=== PATIENT | male | born 1940 | race Caucasian/White ===

== ENCOUNTER 2019-07-02 13:34 | Emergency (ER) | payer OTHER, MEDICARE, BC ==
[2019-07-02 13:57] VITALS: BP 108/67; PULSE 60
--- NOTE | 2019-07-02 15:00 | EDM.PDOC ---
ED HPI GENERAL MEDICAL PROBLEM - General Chief Complaint: Fever Stated Complaint: FEVER Time Seen by Provider: 07/02/19 14:02 Source of Information: Reports: Patient, RN Notes Reviewed, Other ([facility]) - History of Present Illness INITIAL COMMENTS - FREE TEXT/NARRATIVE: 79 yr old male referred here from [facility]. He had hand surgery for Dupuytrens contracture 3 days ago, [facility] as an outpatient. He had onset of low energy last evening, went to be about "90 minutes early". This AM he continued to "weak and tired". He went to [facility], Ua and CXR reported to be normal, had elevated WBC of about 16,000 and reported to have fever of 100.6 at the clinic. Referred here for further evaluation. He has not been coughing or short of breath. No abd pain, nausea or vomiting. - Related Data Allergies Allergy/AdvReac Type Severity Reaction Status Date / Time ibuprofen Allergy Severe Hives Verified 07/02/19 13:46 Home Meds: Home Meds atorvaSTATin [Lipitor] 20 mg PO DAILY 07/02/19 [History] Past Medical History Other HEENT History: Ptosis of eye Cardiovascular History: Reports: High Cholesterol Other Cardiovascular History: Bradycardia Other Gastrointestinal History: colitis - Past Surgical History GI Surgical History: Reports: Cholecystectomy Social & Family History - Tobacco Use Smoking Status *Q: Never Smoker - Caffeine Use Caffeine Use: Reports: None - Recreational Drug Use Recreational Drug Use: No ED ROS GENERAL - Review of Systems Review Of Systems: See Below Constitutional: Reports: Fever HEENT: Denies: Rhinitis, Sinus Problem, Throat Pain Respiratory: Denies: Shortness of Breath, Cough Cardiovascular: Denies: Chest Pain GI/Abdominal: Denies: Abdominal Pain, Diarrhea, Nausea, Vomiting Musculoskeletal: Reports: No Symptoms Skin: Reports: No Symptoms Neurological: Reports: No Symptoms ED EXAM, GENERAL - Physical Exam Exam: See Below General Appearance: Alert, No Apparent Distress Eye Exam: Bilateral Eye: PERRL Nose: Normal Inspection Head: Atraumatic Neck: Supple Respiratory/Chest: No Respiratory Distress, Lungs Clear, Normal Breath Sounds. No: Rhonchi, Wheezing Cardiovascular: Regular Rate, Rhythm GI/Abdominal: Soft, Non-Tender. No: Guarding Back Exam: No: CVA Tenderness (L), CVA Tenderness (R) Extremities: Normal Inspection, Normal Range of Motion. No: Pedal Edema, Leg Pain Neurological: Alert, Oriented, No Motor/Sensory Deficits Skin Exam: Warm, Dry, Normal Color, No Rash Course - Vital Signs Last Recorded V/S: Last Vital Signs Temp 98.7 F 07/02/19 13:50 Pulse 60 07/02/19 13:50 Resp 13 07/02/19 13:50 BP 108/67 07/02/19 13:50 Pulse Ox 100 07/02/19 13:50 - Orders/Labs/Meds Orders: Active Orders 24 hr Category Date Time Status CORONAVIRUS COVID-19 PCR PHL Stat Lab 07/02/19 15:56 Ordered CULTURE BLOOD [BC] Stat Lab 07/02/19 14:45 Received CULTURE WOUND [RM] Stat Lab 07/02/19 14:40 Received Labs: Laboratory Tests 07/02/19 Range/Units 14:45 C-Reactive Protein 17.0 H* (<1.0) mg/dL Meds: Medications Discontinued Medications Generic Name Dose Route Start Last Admin Trade Name Mesfin PRN Reason Stop Dose Admin Ceftriaxone Sodium 1 gm/ 100 mls @ 200 mls/hr 07/02/19 15:50 07/02/19 16:00 Sodium Chloride IV 07/02/19 16:19 200 mls/hr ONETIME ONE Administration - Re-Assessments/Exams Free Text/Narrative Re-Assessment/Exam: 07/02/19 15:47 Labs reviewed from clinic and also Radiologist report stating there are no acute findings. CRP has come back at 17. Blood culture times 1 drawn because of reported prior fever. His hand wound looked good with no visible infection but I have had his nurse swab that with a moistened sterile swab for wound culture. will recheck his temp at this time, will give rocephin 1 gram IV, will do a covid screen and than discharge home with return precautions. Departure - Departure Time of Disposition: 16:49 Disposition: Home, Self-Care 01 Condition: Fair Clinical Impression: Fever - Discharge Information Instructions: Fever, Adult, [id number] Referrals: Mukesh Nagy Jr, MD [Primary Care Provider] - Forms: ED Department Discharge Additional Instructions: Rest, isolate at home until you hear results of the covid screen. Results should become available this evening as the hospital lab can now do the test. Drink plenty of water to maintain hydration. You have been given rocephin 1 gram IV. You will be called if blood culture becomes positive. Tylenol for fever greater than 101. Return to ED for difficulty breathing or if symptoms otherwise worsening in a serious way. Sepsis Event Note - Evaluation Sepsis Screening Result: No Definite Risk - Focused Exam Vital Signs: Vital Signs Temp Pulse Resp BP Pulse Ox 07/02/19 13:50 98.7 F 60 13 108/67 100 Date Exam was Performed: 07/02/19 Time Exam was Performed: 17:05 - My Orders Last 24 Hours: My Active Orders 07/02/19 14:40 CULTURE WOUND [RM] Stat 07/02/19 14:45 CULTURE BLOOD [BC] Stat 07/02/19 15:56 CORONAVIRUS COVID-19 PCR PHL Stat - Assessment/Plan Last 24 Hours: My Active Orders 07/02/19 14:40 CULTURE WOUND [RM] Stat 07/02/19 14:45 CULTURE BLOOD [BC] Stat 07/02/19 15:56 CORONAVIRUS COVID-19 PCR PHL Stat
[2019-07-02] MEDS ORDERED: cefTRIAXone 1 GM in Sodium Chloride 0.9% 100 ML IV ONE (15:50)
== END 2019-07-02 17:15 | disposition home or self-care (01) ==
LOC: JD.ED 13:34
DX: R50.9 Fever, unspecified (principal); E78.00 Pure hypercholesterolemia, unspecified; Z88.8 Allergy status to other drugs, medicaments and biological substances; Z79.899 Other long term (current) drug therapy; Z90.89 Acquired absence of other organs; Z20.828 Contact with and (suspected) exposure to other viral communicable diseases
CPT/HCPCS: 36415; 86140; 87040; 87070; 87077; 87186; 87635; 96365; 99284; J0696; J7050; 99283; U0002

== ENCOUNTER 2020-03-27 10:17 | Emergency (ER) | payer BC, MEDICARE, OTHER ==
[2020-03-27] MEDS ORDERED: Sodium Chloride 0.9% 10 ML Syringe FLUSH PRN (11:12)
--- NOTE | 2020-03-27 11:29 | EDM.PDOC ---
ED HPI GENERAL MEDICAL PROBLEM - General Chief Complaint: Respiratory Problem Stated Complaint: SENT FROM [facility] Time Seen by Provider: 03/27/20 11:06 Source of Information: Reports: Patient, Old Records (AL records), RN Notes Reviewed (Vital signs: Heart rate 67 bpm, temperature is 98.7 F, respiratory rate 18 breaths/min, blood pressure is 117/70, O2 sats 95% on room air.), Significant Other (spouse) History Limitations: Reports: No Limitations - History of Present Illness INITIAL COMMENTS - FREE TEXT/NARRATIVE: Patient is an 80-year-old male who presents to the ED for the evaluation of his possible dehydration. Patient apparently was sent from the [facility] clinic in [place]. He notes a 1 week history of extreme fatigue where he just wants to sleep all the time, loss of appetite and a dry cough. He notes the cough is been present for the last few weeks however it seems to not be getting much better, he states that he "just does not feel well". His is also characterizing chills so much so that he shakes but he is not had a fever, and he remains afebrile at the time of triage. He has no pain or complaints. He does have a history of colitis and states he has not been having increased stools or liquid stools however he has been noting maybe some black-colored tinge to his stools. He denies any shortness of breath, chest pain, nausea/vomiting/diarrhea. He did get his first COVID-19 vaccine roughly a month ago and is scheduled to get his second dose on April 06, 2020. The patient's states that she has been traveling for the last week she is not been home much with them, so she cannot attest to his fatigue and weight loss. - Related Data Allergies Allergy/AdvReac Type Severity Reaction Status Date / Time ibuprofen Allergy Intermediate Hives Verified 03/27/20 12:39 Home Meds: Home Meds atorvaSTATin [Lipitor] 20 mg PO DAILY 07/02/19 [History] Aspirin [Aspirin EC] 81 mg PO DAILY 03/27/20 [History] Colestipol HCl 1 gm PO DAILY 03/27/20 [History] Fish Oil/Crane-3 Fatty Acids [Fish Oil 1,000 MG] 1 each PO DAILY 03/27/20 [History] Multivitamin with Minerals [Multivitamins with Minerals] 1 each PO DAILY 03/27/20 [History] dexAMETHasone [Decadron] 6 mg PO BID 5 Days #10 tablet 03/27/20 [Rx] Past Medical History Other HEENT History: Ptosis of eye Cardiovascular History: Reports: High Cholesterol, Pacemaker Other Cardiovascular History: Bradycardia Gastrointestinal History: Reports: Chronic Diarrhea Other Gastrointestinal History: colitis Genitourinary History: Reports: BPH, Chronic Renal Insuffiency Neurological History: Reports: Neuropathy, Diabetic Endocrine/Metabolic History: Reports: Diabetes, Type II - Past Surgical History GI Surgical History: Reports: Cholecystectomy Social & Family History - Tobacco Use Tobacco Use Status *Q: Never Tobacco User - Caffeine Use Caffeine Use: Reports: Coffee, Tea - Recreational Drug Use Recreational Drug Use: No ED ROS GENERAL - Review of Systems Review Of Systems: Comprehensive ROS is negative, except as noted in HPI. ED EXAM, GENERAL - Physical Exam Exam: See Below Exam Limited By: No Limitations (Pt is hard of hearing) General Appearance: Alert, WD/WN, No Apparent Distress Respiratory/Chest: No Respiratory Distress, Lungs Clear, Normal Breath Sounds, No Accessory Muscle Use, Chest Non-Tender Cardiovascular: Normal Peripheral Pulses, Regular Rate, Rhythm, No Edema Peripheral Pulses: 2+: Radial (L), Radial (R) Extremities: Normal Inspection, Normal Capillary Refill Neurological: Alert, Oriented, Normal Cognition, No Motor/Sensory Deficits Psychiatric: Normal Affect, Normal Mood Skin Exam: Warm, Dry, Intact, Normal Color, No Rash #1 Interpretation EKG Date: 03/27/20 Time: 11:31 Rhythm: NSR Rate (Beats/Min): 63 (Atrial paced complexes at 63 bpm) [place]: LAD-Left [place] Deviation (-15 ) P-Wave: Present QRS: Normal ST-T: Normal QT: Normal Comparison: NA - No Prior EKG EKG Interpretation Comments: No obvious ischemia or acute ST changes noted, reviewed by myself and Dr. Goyal. Course - Vital Signs Last Recorded V/S: Last Vital Signs Temp 98.7 F 03/27/20 10:29 Pulse 60 03/27/20 14:45 Resp 24 H 03/27/20 14:45 BP 113/69 03/27/20 14:45 Pulse Ox 95 03/27/20 14:45 - Orders/Labs/Meds Orders: Active Orders 24 hr Category Date Time Status EKG Documentation Completion [RC] STAT Care 03/27/20 11:11 Ordered Peripheral IV Care [RC] . DIRECTED Care 03/27/20 11:12 Ordered Vital Signs [] Q15M Care 03/27/20 12:35 Ordered EPINEPHrine [Adrenalin] Med 03/27/20 12:35 Active 0.3 mg IM ONETIME PRN Famotidine [Pepcid] Med 03/27/20 12:35 Active 20 mg IVPUSH ONETIME PRN Sodium Chloride 0.9% [Saline Flush] Med 03/27/20 11:12 Active 10 ml FLUSH ASDIRECTED PRN Sodium Chloride 0.9% [Saline Flush] Med 03/27/20 12:45 Active 30 ml FLUSH ASDIRECTED diphenhydrAMINE [Benadryl] Med 03/27/20 12:35 Active 50 mg IVPUSH ONETIME PRN methylPREDNISolone Sod Succ [Solu-MEDROL] Med 03/27/20 12:35 Active 125 mg IVPUSH ONETIME PRN Peripheral IV Insertion Adult [OM.PC] Routine Oth 03/27/20 11:12 Ordered Medication Orders Diphenhydramine HCl (Benadryl) 50 mg IVPUSH ONETIME PRN PRN Reason: hypersensitivity reaction Epinephrine HCl (Adrenalin) 0.3 mg IM ONETIME PRN PRN Reason: hypersensitivity reaction Famotidine (Pepcid) 20 mg IVPUSH ONETIME PRN PRN Reason: hypersensitivity reaction Methylprednisolone Sodium Succinate (Solu-Medrol) 125 mg IVPUSH ONETIME PRN PRN Reason: hypersensitivity reaction Sodium Chloride (Saline Flush) 10 ml FLUSH ASDIRECTED PRN PRN Reason: Keep Vein Open Last Admin: 03/27/20 11:20 Dose: 10 ml Documented by: JUANA Sodium Chloride (Saline Flush) 30 ml FLUSH ASDIRECTED [facility] Labs: Laboratory Tests 03/27/20 03/27/20 03/27/20 Range/Units 10:50 10:50 10:50 WBC 10.66 H (4.23-9.07) K/mm3 RBC 3.91 L (4.63-6.08) M/mm3 Hgb 11.9 L (13.7-17.5) gm/dl Hct 35.0 L (40.1-51.0) % MCV 89.5 (79.0-92.2) fl MCH 30.4 (25.7-32.2) pg MCHC 34.0 (32.2-35.5) g/dl RDW Std Deviation 45.1 H (35.1-43.9) fL Plt Count 207 (163-337) K/mm3 MPV 10.7 (9.4-12.3) fl Neutrophils % (Manual) 53 (40-60) % Band Neutrophils % 0 (0-10) % Lymphocytes % (Manual) 44 H (20-40) % Atypical Lymphs % 0 % Monocytes % (Manual) 3 (2-10) % Eosinophils % (Manual) 0 L (0.8-7.0) % Basophils % (Manual) 0 L (0.2-1.2) Platelet Estimate Adequate RBC Morph Comment Normal PT 11.3 (9.7-12.0) SECONDS INR 1.06 APTT 33.1 H (21.7-31.4) SECONDS D-Dimer, Quantitative 1.14 H (0.19-0.50) mg/L Sodium (136-145) mEq/L Potassium (3.5-5.1) mEq/L Chloride (98-107) mEq/L Carbon Dioxide (21-32) mEq/L Anion Gap (5-15) BUN (7-18) mg/dL Creatinine (0.7-1.3) mg/dL Est Cr Clr Drug Dosing mL/min Estimated GFR (MDRD) (>60) mL/min BUN/Creatinine Ratio (14-18) Glucose (83-115) mg/dL Lactic Acid (0.4-2.0) mmol/L Calcium (8.5-10.1) mg/dL Magnesium (1.8-2.4) mg/dl Ferritin (26-388) ng/ml Total Bilirubin (0.2-1.0) mg/dL AST (15-37) U/L ALT (16-63) U/L Alkaline Phosphatase (46-116) U/L Troponin I (0.00-0.056) ng/mL C-Reactive Protein 16.7 H* (<1.0) mg/dL NT-Pro-B Natriuret Pep (0-450) pg/mL Total Protein (6.4-8.2) g/dl Albumin (3.4-5.0) g/dl Globulin gm/dL Albumin/Globulin Ratio (1-2) Urine Color (Yellow) Urine Appearance (Clear) Urine pH (5.0-8.0) Ur Specific [place] (1.005-1.030) Urine Protein (Negative) Urine Glucose (UA) (Negative) Urine Ketones (Negative) Urine Occult Blood (Negative) Urine Nitrite (Negative) Urine Bilirubin (Negative) Urine Urobilinogen (0.2-1.0) Ur Leukocyte Esterase (Negative) Urine RBC (0-5) /hpf Urine WBC (0-5) /hpf Ur Squamous Epith Cells (0-5) /hpf Urine Bacteria (FEW) /hpf Urine Mucus (FEW) /hpf Influenza Type A RNA (NEGATIVE) Influenza Type B RNA (NEGATIVE) SARS-CoV-2 RNA (AMANDA) (NEGATIVE) 03/27/20 03/27/20 03/27/20 Range/Units 10:50 10:50 10:50 WBC (4.23-9.07) K/mm3 RBC (4.63-6.08) M/mm3 Hgb (13.7-17.5) gm/dl Hct (40.1-51.0) % MCV (79.0-92.2) fl MCH (25.7-32.2) pg MCHC (32.2-35.5) g/dl RDW Std Deviation (35.1-43.9) fL Plt Count (163-337) K/mm3 MPV (9.4-12.3) fl Neutrophils % (Manual) (40-60) % Band Neutrophils % (0-10) % Lymphocytes % (Manual) (20-40) % Atypical Lymphs % % Monocytes % (Manual) (2-10) % Eosinophils % (Manual) (0.8-7.0) % Basophils % (Manual) (0.2-1.2) Platelet Estimate RBC Morph Comment PT (9.7-12.0) SECONDS INR APTT (21.7-31.4) SECONDS D-Dimer, Quantitative (0.19-0.50) mg/L Sodium 135 L (136-145) mEq/L Potassium 2.8 L (3.5-5.1) mEq/L Chloride 100 (98-107) mEq/L Carbon Dioxide 22 (21-32) mEq/L Anion Gap 15.8 H (5-15) BUN 22 H (7-18) mg/dL Creatinine 1.4 H (0.7-1.3) mg/dL Est Cr Clr Drug Dosing 40.04 mL/min Estimated GFR (MDRD) 49 (>60) mL/min BUN/Creatinine Ratio 15.7 (14-18) Glucose 120 H (83-115) mg/dL Lactic Acid (0.4-2.0) mmol/L Calcium 9.7 (8.5-10.1) mg/dL Magnesium 2.1 (1.8-2.4) mg/dl Ferritin 2027 H (26-388) ng/ml Total Bilirubin 0.9 (0.2-1.0) mg/dL AST 29 (15-37) U/L ALT 24 (16-63) U/L Alkaline Phosphatase 49 (46-116) U/L Troponin I < 0.017 (0.00-0.056) ng/mL C-Reactive Protein (<1.0) mg/dL NT-Pro-B Natriuret Pep 482 H (0-450) pg/mL Total Protein 7.0 (6.4-8.2) g/dl Albumin 2.8 L (3.4-5.0) g/dl Globulin 4.2 gm/dL Albumin/Globulin Ratio 0.7 L (1-2) Urine Color (Yellow) Urine Appearance (Clear) Urine pH (5.0-8.0) Ur Specific [place] (1.005-1.030) Urine Protein (Negative) Urine Glucose (UA) (Negative) Urine Ketones (Negative) Urine Occult Blood (Negative) Urine Nitrite (Negative) Urine Bilirubin (Negative) Urine Urobilinogen (0.2-1.0) Ur Leukocyte Esterase (Negative) Urine RBC (0-5) /hpf Urine WBC (0-5) /hpf Ur Squamous Epith Cells (0-5) /hpf Urine Bacteria (FEW) /hpf Urine Mucus (FEW) /hpf Influenza Type A RNA (NEGATIVE) Influenza Type B RNA (NEGATIVE) SARS-CoV-2 RNA (AMANDA) (NEGATIVE) 03/27/20 03/27/20 03/27/20 Range/Units 10:50 11:25 11:26 WBC (4.23-9.07) K/mm3 RBC (4.63-6.08) M/mm3 Hgb (13.7-17.5) gm/dl Hct (40.1-51.0) % MCV (79.0-92.2) fl MCH (25.7-32.2) pg MCHC (32.2-35.5) g/dl RDW Std Deviation (35.1-43.9) fL Plt Count (163-337) K/mm3 MPV (9.4-12.3) fl Neutrophils % (Manual) (40-60) % Band Neutrophils % (0-10) % Lymphocytes % (Manual) (20-40) % Atypical Lymphs % % Monocytes % (Manual) (2-10) % Eosinophils % (Manual) (0.8-7.0) % Basophils % (Manual) (0.2-1.2) Platelet Estimate RBC Morph Comment PT (9.7-12.0) SECONDS INR APTT (21.7-31.4) SECONDS D-Dimer, Quantitative (0.19-0.50) mg/L Sodium (136-145) mEq/L Potassium (3.5-5.1) mEq/L Chloride (98-107) mEq/L Carbon Dioxide (21-32) mEq/L Anion Gap (5-15) BUN (7-18) mg/dL Creatinine (0.7-1.3) mg/dL Est Cr Clr Drug Dosing mL/min Estimated GFR (MDRD) (>60) mL/min BUN/Creatinine Ratio (14-18) Glucose (83-115) mg/dL Lactic Acid 1.5 (0.4-2.0) mmol/L Calcium (8.5-10.1) mg/dL Magnesium (1.8-2.4) mg/dl Ferritin (26-388) ng/ml Total Bilirubin (0.2-1.0) mg/dL AST (15-37) U/L ALT (16-63) U/L Alkaline Phosphatase (46-116) U/L Troponin I (0.00-0.056) ng/mL C-Reactive Protein (<1.0) mg/dL NT-Pro-B Natriuret Pep (0-450) pg/mL Total Protein (6.4-8.2) g/dl Albumin (3.4-5.0) g/dl Globulin gm/dL Albumin/Globulin Ratio (1-2) Urine Color Yellow (Yellow) Urine Appearance Clear (Clear) Urine pH 7.0 (5.0-8.0) Ur Specific [place] 1.015 (1.005-1.030) Urine Protein Trace H (Negative) Urine Glucose (UA) Negative (Negative) Urine Ketones Negative (Negative) Urine Occult Blood Trace-lysed H (Negative) Urine Nitrite Negative (Negative) Urine Bilirubin Negative (Negative) Urine Urobilinogen 0.2 (0.2-1.0) Ur Leukocyte Esterase Negative (Negative) Urine RBC 5-10 H (0-5) /hpf Urine WBC 0-5 (0-5) /hpf Ur Squamous Epith Cells 0-5 (0-5) /hpf Urine Bacteria Few (FEW) /hpf Urine Mucus Not seen (FEW) /hpf Influenza Type A RNA Negative (NEGATIVE) Influenza Type B RNA Negative (NEGATIVE) SARS-CoV-2 RNA (AMANDA) Positive H (NEGATIVE) Meds: Medications Generic Name Dose Route Start Last Admin Trade Name Goq PRN Reason Stop Dose Admin Diphenhydramine HCl 50 mg 03/27/20 12:35 Benadryl IVPUSH ONETIME PRN hypersensitivity reaction Epinephrine HCl 0.3 mg 03/27/20 12:35 Adrenalin IM ONETIME PRN hypersensitivity reaction Famotidine 20 mg 03/27/20 12:35 Pepcid IVPUSH ONETIME PRN hypersensitivity reaction Methylprednisolone Sodium Succinate 125 mg 03/27/20 12:35 Solu-Medrol IVPUSH ONETIME PRN hypersensitivity reaction Sodium Chloride 10 ml 03/27/20 11:12 03/27/20 11:20 Saline Flush FLUSH 10 ml ASDIRECTED PRN Administration Keep Vein Open Sodium Chloride 30 ml 03/27/20 12:45 Saline Flush FLUSH ASDIRECTED POLO Discontinued Medications Generic Name Dose Route Start Last Admin Trade Name Goq PRN Reason Stop Dose Admin Dexamethasone 6 mg 03/27/20 12:35 03/27/20 13:02 Decadron IVPUSH 03/27/20 12:36 6 mg ONETIME ONE Administration Non-Formulary Medication 1,200 250 mls @ 250 mls/hr 03/27/20 12:35 03/27/20 13:03 mg/ Non-Formulary Medication IV 03/27/20 13:34 250 mls/hr 1,200 mg/ Sodium Chloride ONETIME ONE Administration Potassium Chloride 40 meq 03/27/20 12:17 03/27/20 12:29 Klor-Con M20 PO 03/27/20 12:18 40 meq ONETIME ONE Administration - Re-Assessments/Exams Free Text/Narrative Re-Assessment/Exam: 03/27/20 11:28 Patient presents to the ED for the evaluation of his ongoing fatigue for the last week. Due to his multitude of symptoms, we will get an array of labs, swab him for COVID-19, get a chest x-ray EKG. However with his report of black stools I am slightly concerned he may have been having an ongoing GI bleed, that could be causing some of his symptoms. 03/27/20 12:19 Patient's labs have started to result, white cell count is mildly elevated at 10.44 with 53% neutrophils and no bands, hemoglobin is 11.9 with hematocrit of 35. D-dimer is elevated at 1.14, CRP elevated at 16.7, ferritin elevated at 2026, patient does have renal insufficiency consistent with his CKD. Patient's COVID-19 screen did come back positive and his potassium is low at 2.8. At this time the patient would benefit from the possibility of outpatient bamlanivimab/Regeneron treatment. I will offer this to the patient at this time, his is present in the room, so I will ask her to leave at this time, go home and quarantine herself and get tested if she should develop symptoms. Regarding the patient's potassium we will give him 40 mEq oral, and repeat another 40 mEq oral prior to discharge. 03/27/20 12:36 I spoke with the patient and his to provide information about Regeneron Regeneron treatment. I offered them the "Patient and caregiver EUA fact sheet" to read and review. I stated that the drug has been approved by an emergency use authorization (EUA) process and has not been fully FDA reviewed or approved. The patient meets the EUA requirements. I discussed there are other potential treatment options that are currently not FDA approved to treat COVID-19. I did offer an opportunity to ask questions and all questions were answered. Patient and voiced understanding and agreed to proceed with the treatment. We will go ahead and give the patient 6 mg of IV dexamethasone as well, and plan to give this to him outpatient as well. Patient was reassessed at bedside when he was explained the Regeneron therapy, blood pressure is on the low side of normal, but his states that this is somewhat normal for him O2 sats are still 94 to 95%. Again to the patient's COVID-19 positive status I do not want to give him a lot of oral fluids I did go over what the should be giving the patient at home regarding nutrition, and she verbalized understanding. 03/27/20 13:58 The patient is nearing the end of his Regeneron IV therapy, he will be observed for a time period of 1 hour after this medication has been given, we will likely repeat the 40 mEq p.o. potassium dose before going, and discharged with general conservative recommendations. The patient's x-ray did come back concerning for the start of COVID-19 pneumonia. Departure - Departure Time of Disposition: 14:49 Disposition: Home, Self-Care 01 Condition: Good Clinical Impression: COVID-19, Hypokalemia - Discharge Information *PRESCRIPTION DRUG MONITORING PROGRAM REVIEWED*: No *COPY OF PRESCRIPTION DRUG MONITORING REPORT IN PATIENT ZULEIMA: No Prescriptions: dexAMETHasone [Decadron] 6 mg PO BID 5 Days #10 tablet Instructions: COVID-19 Frequently Asked Questions, 10 Things You Can Do to Manage Your COVID-19 Symptoms at Home - CDC, Hypokalemia Referrals: Rosario Wilder MD [Primary Care Provider] - Forms: ED Department Discharge Additional Instructions: You were seen in the ER today for ongoing and/or worsening respiratory symptoms. Your chest x-ray showed no signs of pneumonia at this time. Your oxygen levels were great at 95-96% on room air. You had a multitude of labs done at today's visit, and you were positive for COVID-19 at this time. This likely started roughly 1 week ago when you started feeling the symptoms of fatigue, and loss of appetite. Please try to increase your oral fluid intake, and eat multiple small meals throughout the day, to keep yourself healthy. You need to keep yourself nourished in order to fight off this disease. You can try a liquid diet like gatorade/powerade as well to get your electrolytes. You may also try protein shakes to help keep your nutrition up if you are not overly hungry. You may take 500 mg Tylenol every hours 6 hours for pain/fever relief. Do not exceed 4000 mg Tylenol in a 24-hour time span. However, running a fever is your body's natural response to illness, and it allows the body to develop antibodies to disease, we are recommending trying to limit the use of Tylenol as much as possible to allow your body's natural immune response. Recommend you obtain a pulse oximeter and monitor your oxygen levels at home, you should place the monitor on your finger, and sit in a calm, quiet position for a few minutes and then record the number that is on the screen. If this consistently below 90% on room air without movement, this would be cause for concern to come back to the hospital for further management of your COVID-19 disease. You will likely be contacted by the [facility], and please utilize them for all further COVID-19 guidance/questions/concerns. Sepsis Event Note (ED) - Evaluation Sepsis Screening Result: No Definite Risk - Focused Exam Vital Signs: Vital Signs Temp Pulse Resp BP Pulse Ox 03/27/20 14:45 60 24 H 113/69 95 03/27/20 14:30 60 20 117/72 94 L 03/27/20 14:15 60 20 124/108 H 90 L 03/27/20 14:00 60 20 111/67 97 03/27/20 13:45 60 18 105/66 95 03/27/20 13:30 63 18 107/71 95 03/27/20 13:15 60 20 106/65 95 03/27/20 13:00 60 20 108/69 95 03/27/20 12:45 65 20 116/70 97 03/27/20 12:30 60 20 103/56 L 94 L 03/27/20 12:00 61 20 100/66 94 L 03/27/20 11:45 60 20 98/64 94 L 03/27/20 10:29 98.7 F 67 18 117/70 95 - My Orders Last 24 Hours: My Active Orders 03/27/20 11:11 EKG Documentation Completion [RC] STAT 03/27/20 11:12 Peripheral IV Care [RC] . DIRECTED Sodium Chloride 0.9% [Saline Flush] 10 ml FLUSH ASDIRECTED PRN Peripheral IV Insertion Adult [OM.PC] Routine 03/27/20 12:35 Vital Signs [RC] Q15M EPINEPHrine [Adrenalin] 0.3 mg IM ONETIME PRN Famotidine [Pepcid] 20 mg IVPUSH ONETIME PRN diphenhydrAMINE [Benadryl] 50 mg IVPUSH ONETIME PRN methylPREDNISolone Sod Succ [Solu-MEDROL] 125 mg IVPUSH ONETIME PRN 03/27/20 12:45 Sodium Chloride 0.9% [Saline Flush] 30 ml FLUSH ASDIRECTED - Assessment/Plan Last 24 Hours: My Active Orders 03/27/20 11:11 EKG Documentation Completion [RC] STAT 03/27/20 11:12 Peripheral IV Care [RC] . DIRECTED Sodium Chloride 0.9% [Saline Flush] 10 ml FLUSH ASDIRECTED PRN Peripheral IV Insertion Adult [OM.PC] Routine 03/27/20 12:35 Vital Signs [RC] Q15M EPINEPHrine [Adrenalin] 0.3 mg IM ONETIME PRN Famotidine [Pepcid] 20 mg IVPUSH ONETIME PRN diphenhydrAMINE [Benadryl] 50 mg IVPUSH ONETIME PRN methylPREDNISolone Sod Succ [Solu-MEDROL] 125 mg IVPUSH ONETIME PRN 03/27/20 12:45 Sodium Chloride 0.9% [Saline Flush] 30 ml FLUSH ASDIRECTED
[2020-03-27 12:17] LABS: CORONAVIRUS COVID-19 NAA POSITIVE (NEGATIVE)
[2020-03-27] MEDS ORDERED: Potassium Chloride 20 MEQ Tab.ER PO ONE ×2 (12:17→14:49)
[2020-03-27] MEDS ORDERED: methylPREDNISolone Sodium Succinate 125 MG/2 ML SDV IVPUSH PRN (12:35)
[2020-03-27] MEDS ORDERED: EPINEPHrine 1 MG/ML SDV IM PRN (12:35)
[2020-03-27] MEDS ORDERED: Casirivimab 1,200 MG, Imdevimab 1,200 MG in Sodium Chloride 0.9% 230 ML IV ONE (12:35)
[2020-03-27] MEDS ORDERED: Famotidine 20 MG/2 ML SDV IVPUSH PRN (12:35)
[2020-03-27] MEDS ORDERED: Dexamethasone 10 MG/ML SDV IVPUSH ONE (12:35)
[2020-03-27] MEDS ORDERED: diphenhydrAMINE 50 MG/ML SDV IVPUSH PRN (12:35)
[2020-03-27] MEDS ORDERED: Sodium Chloride 0.9% 10 ML Syringe FLUSH SCH (12:45)
--- NOTE | 2020-03-27 14:01 | CR ---
Chest: Portable view of the chest was obtained. Comparison: Prior chest x-ray of 08/11/14. Heart size is felt to be within normal limits for portable technique. Tortuous thoracic aorta is seen. Pacemaker is noted. Patchy areas of increased density within the right upper lung are seen. Slight densities are noted within the left lower lung. Impression: 1. Patchy areas of increased density as noted above within both lungs. Please correlate if patient has COVID pneumonia. 2. Other findings as noted above which are stable. Diagnostic code #3
[2020-03-27 14:46] VITALS: PULSE 60
[2020-03-27 14:48] VITALS: BP 113/69
== END 2020-03-27 15:10 | disposition home or self-care (01) ==
LOC: JD.ED 10:17
DX: U07.1 COVID-19 (principal); E87.6 Hypokalemia; E78.00 Pure hypercholesterolemia, unspecified; E11.40 Type 2 diabetes mellitus with diabetic neuropathy, unspecified; E11.22 Type 2 diabetes mellitus with diabetic chronic kidney disease; N18.9 Chronic kidney disease, unspecified; Z79.82 Long term (current) use of aspirin; Z79.899 Other long term (current) drug therapy; Z88.6 Allergy status to analgesic agent; Z20.822 Contact with and (suspected) exposure to COVID-19
CPT/HCPCS: 0240U; 36415; 71045; 80053; 81001; 82728; 83605; 83735; 83880; 84484; 85007; 85027; 85379; 85610; 85730; 86140; 93005; 96374; 99284; A9270; J1100; J7050; M0243; Q0243; 93010

== ENCOUNTER 2020-03-29 11:39 | Emergency (ER) | payer OTHER ==
[2020-03-29 11:58] VITALS: BP 135/93; PULSE 63
--- NOTE | 2020-03-29 13:58 | CR ---
Chest: Portable view of the chest was obtained. Comparison: Prior chest x-ray of 03/27/20. Findings: Patchy areas of increased density are seen within both sides of the chest which have worsened from previous exam. Heart size and mediastinum are within normal limits. Small hiatal hernia is seen. Pacemaker is noted. Impression: 1. Slight increasing density within both sides of the chest from prior chest x-ray compatible with worsening COVID pneumonia. Diagnostic code #3
--- NOTE | 2020-03-29 14:59 | EDM.PDOC ---
ED HPI GENERAL MEDICAL PROBLEM - General Chief Complaint: Respiratory Problem Stated Complaint: [facility] Time Seen by Provider: 03/29/20 12:25 Source of Information: Reports: Patient, RN Notes Reviewed - History of Present Illness INITIAL COMMENTS - FREE TEXT/NARRATIVE: 80 yr old male comes in with dyspnea, known covid with onset of sx about 10 days ago. He was evaluated and diagnosed with covid in this ED 2 days ago. See that record for details. He was felt to be a candidate for Regneron IV therapy and was given that here in the ED 2 days ago. He has had continued cough, fatigue, believes he is getting more short of breath. No chest pain. Not much appetite. No vomiting. Has had continued fatigue, no recent fever that he is aware of. His now also does have covid as well. His is reported to be doing OK. - Related Data Allergies Allergy/AdvReac Type Severity Reaction Status Date / Time ibuprofen Allergy Intermediate Hives Verified 03/29/20 12:03 Home Meds: Home Meds atorvaSTATin [Lipitor] 20 mg PO DAILY 07/02/19 [History] Aspirin [Aspirin EC] 81 mg PO DAILY 03/27/20 [History] Colestipol HCl 1 gm PO DAILY 03/27/20 [History] Fish Oil/[place]-3 Fatty Acids [Fish Oil 1,000 MG] 1 each PO DAILY 03/27/20 [History] Multivitamin with Minerals [Multivitamins with Minerals] 1 each PO DAILY 03/27/20 [History] dexAMETHasone [Decadron] 6 mg PO BID 5 Days #10 tablet 03/27/20 [Rx] Past Medical History Other HEENT History: Ptosis of eye Cardiovascular History: Reports: High Cholesterol, Pacemaker Other Cardiovascular History: Bradycardia Respiratory History: Reports: None Gastrointestinal History: Reports: Chronic Diarrhea Other Gastrointestinal History: colitis Genitourinary History: Reports: BPH, Chronic Renal Insuffiency Musculoskeletal History: Reports: None Neurological History: Reports: Neuropathy, Diabetic Psychiatric History: Reports: None Endocrine/Metabolic History: Reports: Diabetes, Type II Hematologic History: Reports: None Immunologic History: Reports: None Oncologic (Cancer) History: Reports: None Dermatologic History: Reports: None - Infectious Disease History Infectious Disease History: Reports: Chicken Pox, Measles, Mumps, Novel Coronavirus, Shingles - Past Surgical History HEENT Surgical History: Reports: Tonsillectomy GI Surgical History: Reports: Cholecystectomy Social & Family History - Family History Family Medical History: No Pertinent Family History Cardiac: Reports: CAD, [place] Endocrine/Metabolic: Reports: Diabetes, type II Oncologic: Reports: Bone, Other (See Below) Other Oncologic Family History: unsure - Tobacco Use Tobacco Use Status *Q: Current Some Day Tobacco User Years of Tobacco use: 20 Packs/Tins Daily: 1 - Caffeine Use Caffeine Use: Reports: Coffee - Recreational Drug Use Recreational Drug Use: No ED ROS GENERAL - Review of Systems Review Of Systems: See Below Constitutional: Denies: Fever (no recent fever) HEENT: Reports: Rhinitis (mild) Respiratory: Reports: Shortness of Breath, Cough. Denies: Wheezing Cardiovascular: Denies: Chest Pain GI/Abdominal: Reports: Decreased Appetite. Denies: Abdominal Pain, Diarrhea, Vomiting Musculoskeletal: Reports: Other (generalized achiness) Skin: Denies: Rash Neurological: Reports: Dizziness, Weakness (mild generalized). Denies: Headache, Trouble Speaking, Difficulty Walking ED EXAM, GENERAL - Physical Exam Exam: See Below General Appearance: Alert, No Apparent Distress Head: Atraumatic Neck: Supple Respiratory/Chest: No Respiratory Distress, Lungs Clear, Normal Breath Sounds. No: Rales, Rhonchi, Wheezing Cardiovascular: Regular Rate, Rhythm Back Exam: No: CVA Tenderness (L), CVA Tenderness (R) Extremities: Normal Inspection. No: Pedal Edema, Leg Pain, Increased Warmth, Redness Neurological: Alert, Oriented, No Motor/Sensory Deficits Skin Exam: Warm, Dry, Normal Color, No Rash Course - Vital Signs Last Recorded V/S: Last Vital Signs Temp 97.5 F 03/29/20 11:57 Pulse 63 03/29/20 11:57 Resp 16 03/29/20 11:57 BP 135/93 H 03/29/20 11:57 Pulse Ox 98 03/29/20 11:57 - Orders/Labs/Meds Labs: Laboratory Tests 03/29/20 03/29/20 03/29/20 Range/Units 12:39 12:39 12:39 WBC 19.42 H (4.23-9.07) K/mm3 RBC 3.81 L (4.63-6.08) M/mm3 Hgb 11.8 L (13.7-17.5) gm/dl Hct 35.3 L (40.1-51.0) % MCV 92.7 H D (79.0-92.2) fl MCH 31.0 (25.7-32.2) pg MCHC 33.4 (32.2-35.5) g/dl RDW Std Deviation 47.5 H (35.1-43.9) fL Plt Count 241 (163-337) K/mm3 MPV 10.8 (9.4-12.3) fl Neut % (Auto) 51.0 (34.0-67.9) % Lymph % (Auto) 45.1 (21.8-53.1) % [place] % (Auto) 3.5 L (5.3-12.2) % Eos % (Auto) 0 L (0.8-7.0) Baso % (Auto) 0.1 (0.1-1.2) % Neut # (Auto) 9.92 H (1.78-5.38) K/mm3 Lymph # (Auto) 8.76 H (1.32-3.57) K/mm3 [place] # (Auto) 0.67 (0.30-0.82) K/mm3 Eos # (Auto) 0.00 L (0.04-0.54) K/mm3 Baso # (Auto) 0.01 (0.01-0.08) K/mm3 Manual Slide Review Normal smear D-Dimer, Quantitative 2.16 H (0.19-0.50) mg/L Sodium (136-145) mEq/L Potassium (3.5-5.1) mEq/L Chloride (98-107) mEq/L Carbon Dioxide (21-32) mEq/L Anion Gap (5-15) BUN (7-18) mg/dL Creatinine (0.7-1.3) mg/dL Est Cr Clr Drug Dosing mL/min Estimated GFR (MDRD) (>60) mL/min BUN/Creatinine Ratio (14-18) Glucose (83-115) mg/dL Calcium (8.5-10.1) mg/dL Ferritin (26-388) ng/ml Total Bilirubin (0.2-1.0) mg/dL AST (15-37) U/L ALT (16-63) U/L Alkaline Phosphatase (46-116) U/L Lactate Dehydrogenase (85-227) U/L C-Reactive Protein 5.3 H* (<1.0) mg/dL Total Protein (6.4-8.2) g/dl Albumin (3.4-5.0) g/dl Globulin gm/dL Albumin/Globulin Ratio (1-2) 03/29/20 03/29/20 Range/Units 12:39 12:39 WBC (4.23-9.07) K/mm3 RBC (4.63-6.08) M/mm3 Hgb (13.7-17.5) gm/dl Hct (40.1-51.0) % MCV (79.0-92.2) fl MCH (25.7-32.2) pg MCHC (32.2-35.5) g/dl RDW Std Deviation (35.1-43.9) fL Plt Count (163-337) K/mm3 MPV (9.4-12.3) fl Neut % (Auto) (34.0-67.9) % Lymph % (Auto) (21.8-53.1) % [place] % (Auto) (5.3-12.2) % Eos % (Auto) (0.8-7.0) Baso % (Auto) (0.1-1.2) % Neut # (Auto) (1.78-5.38) K/mm3 Lymph # (Auto) (1.32-3.57) K/mm3 [place] # (Auto) (0.30-0.82) K/mm3 Eos # (Auto) (0.04-0.54) K/mm3 Baso # (Auto) (0.01-0.08) K/mm3 Manual Slide Review D-Dimer, Quantitative (0.19-0.50) mg/L Sodium 139 (136-145) mEq/L Potassium 4.2 (3.5-5.1) mEq/L Chloride 104 (98-107) mEq/L Carbon Dioxide 23 (21-32) mEq/L Anion Gap 16.2 H (5-15) BUN 33 H (7-18) mg/dL Creatinine 1.3 (0.7-1.3) mg/dL Est Cr Clr Drug Dosing 41.67 mL/min Estimated GFR (MDRD) 53 (>60) mL/min BUN/Creatinine Ratio 25.4 H (14-18) Glucose 301 H (83-115) mg/dL Calcium 9.7 (8.5-10.1) mg/dL Ferritin 1853 H (26-388) ng/ml Total Bilirubin 0.7 (0.2-1.0) mg/dL AST 21 (15-37) U/L ALT 26 (16-63) U/L Alkaline Phosphatase 51 (46-116) U/L Lactate Dehydrogenase 255 H (85-227) U/L C-Reactive Protein (<1.0) mg/dL Total Protein 7.0 (6.4-8.2) g/dl Albumin 2.9 L (3.4-5.0) g/dl Globulin 4.1 gm/dL Albumin/Globulin Ratio 0.7 L (1-2) - Re-Assessments/Exams Free Text/Narrative Re-Assessment/Exam: 03/30/20 15:27 CXR looks quite similar to CXR of 2 days ago, slight perihilar infiltrates, Radiolgist thinks mildly worse than 2 days ago. See Radiologist report for d etails. Sats have been good running 96 to 99 % room air. Labs are relatively OK. Of interest CRP has come down for 16.7 to 5.3. I spent considerable time discussing findings with his and also with patient. Strong return precautions given. Departure - Departure Time of Disposition: 14:56 Disposition: Home, Self-Care 01 Condition: Fair Clinical Impression: Pneumonia due to COVID-19 virus - Discharge Information Instructions: COVID-19: How to Protect Yourself and Others - [facility] Referrals: Rosario Wilder MD [Primary Care Provider] - Forms: ED Department Discharge Additional Instructions: Rest, Drink plenty of water to maintain hydration, eat regular meals and snacks, boost supplement 2 to 3 times daily if needed. Take a multivitamin once daily and consider extra vitamin D once or twice daily. Continue dexamethasone until gone. Tylenol twice daily. Try get an oximeter if possible to measure his oxygen at home. Eran Blanc did have them available awhile ago, call Eran gonzalez to check. Return to ED if sats dropping below 90 % or if breathing becomes very difficult, or otherwise as needed. Sepsis Event Note (ED) - Evaluation Sepsis Screening Result: No Definite Risk
== END 2020-03-29 15:11 | disposition home or self-care (01) ==
LOC: JD.ED 11:39
DX: U07.1 COVID-19 (principal); J12.82 Pneumonia due to coronavirus disease 2019; E11.40 Type 2 diabetes mellitus with diabetic neuropathy, unspecified; E11.22 Type 2 diabetes mellitus with diabetic chronic kidney disease; N18.9 Chronic kidney disease, unspecified; Z79.82 Long term (current) use of aspirin; Z79.899 Other long term (current) drug therapy; Z72.0 Tobacco use
CPT/HCPCS: 36415; 71045; 71045-26; 80053; 82728; 83615; 85025; 85379; 86140; 99283; 99285-25